=== PATIENT | female | born 2000 | race Caucasian/White ===

== ENCOUNTER 2018-06-23 01:09 | Emergency (ER) | payer MEDICAID ==
[2018-06-23] MEDS ORDERED: Ibuprofen 600 MG Tab PO ONE (01:20)
[2018-06-23] MEDS ORDERED: Clindamycin HCl 150 MG Cap PO ONE (01:20)
--- NOTE | 2018-06-23 01:20 | EDM.PDOC ---
ED HPI GENERAL MEDICAL PROBLEM - General Stated Complaint: TOOTHACHE Time Seen by Provider: 06/23/18 01:09 Source of Information: Reports: Patient History Limitations: Reports: No Limitations - History of Present Illness INITIAL COMMENTS - FREE TEXT/NARRATIVE: 18 y.o.w.f came to the ed this am due to toothache for one week. Pt took Tylenol without help. Pt does not smoke. She cleans her tooth twice a day. She is concerned about swelling of her right cheek. No N/V/D or any other acute medical issues. Pt denies . 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 Pain Score (Numeric/FACES): 9 - Related Data Allergies Allergy/AdvReac Type Severity Reaction Status Date / Time No Known Allergies Allergy Verified 06/23/18 01:17 Home Meds: Home Meds Clindamycin HCl [Cleocin HCl] 150 mg PO Q6HR #20 capsule 06/23/18 [Rx] Past Medical History - Past Health History Medical/Surgical History: Denies Medical/Surgical History Other HEENT History: AMBLYOPIA LT EYE Respiratory History: Reports: Asthma Gastrointestinal History: Reports: GERD Genitourinary History: Reports: Other (See Below) Other Genitourinary History: PAIN WITH 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 History: Reports: Other (See Below) Other NURSES' ASSOCIATION EXECUTIVE DIRECTOR History: OVARIAN CYST PER US Neurological History: Reports: Migraines Psychiatric History: Reports: Anxiety, Bipolar, Depression, Suicide Attempt Endocrine/Metabolic History: Reports: Obesity/BMI 30+ - Past Surgical History HEENT Surgical History: Reports: Adenoidectomy, Tonsillectomy Social & Family History - Family History Family Medical History: Noncontributory - Caffeine Use Caffeine Use: Reports: Soda ED ROS ENT - Review of Systems Review Of Systems: See Below Constitutional: Reports: No Symptoms HEENT: Reports: Dental Pain Respiratory: Reports: No Symptoms Cardiovascular: Reports: No Symptoms Endocrine: Reports: No Symptoms GI/Abdominal: Reports: No Symptoms : Reports: No Symptoms Musculoskeletal: Reports: No Symptoms Skin: Reports: No Symptoms Neurological: Reports: No Symptoms Psychiatric: Reports: No Symptoms Hematologic/Lymphatic: Reports: No Symptoms Immunologic: Reports: No Symptoms ED EXAM, ENT - Physical Exam Exam: See Below Exam Limited By: No Limitations General Appearance: Alert, WD/WN, Mild Distress Eye Exam: Bilateral Eye: Normal Inspection Ears: Normal External Exam Nose: Normal Inspection Mouth/Throat: Normal Inspection, Normal Lips, Normal Oropharynx, Dental Pain, Dental Tenderness, Gum Swelling Head: Atraumatic, Normocephalic Neck: Normal Inspection, Supple, Non-Tender, Full Range of Motion Respiratory/Chest: No Respiratory Distress, Lungs Clear, Normal Breath Sounds, No Accessory Muscle Use, Chest Non-Tender Cardiovascular: Normal Peripheral Pulses, Regular Rate, Rhythm, No Edema, No Gallop GI/Abdominal: Normal Bowel Sounds, Soft, Non-Tender, No Organomegaly, No Abnormal Bruit, No Mass, Pelvis Stable (Female) Exam: Deferred Rectal (Female) Exam: Deferred Back: Normal Inspection, Full Range of Motion Extremities: Normal Inspection, Normal Range of Motion, Non-Tender, No Pedal Edema Neurological: Alert, Oriented, CN II-XII Intact, Normal Cognition, Normal Gait Psychiatric: Normal Affect, Normal Mood Skin: Warm, Dry, Intact, Normal Color, No Rash Lymphatic: No Adenopathy Course - Vital Signs Text/Narrative:: 18 y.o.w.f came to the ed this am due to toothache for one week. Pt took Tylenol without help. Pt does not smoke. She cleans her tooth twice a day. She is concerned about swelling of her right cheek. No N/V/D or any other acute medical issues. Pt denies . BP 130/70 RR 17 Pulse ox 100% on RA Temp 36.1 Pulse 81 PE: WNWD W F with swelling of right cheek and poor dentition Impression: Gingivitis, poor dentition Tx: Clindamycin, Motrin Reexam: Improved Plan: D/C with instructions Last Recorded V/S: Last Vital Signs Temp 36.1 C 06/23/18 01:09 Pulse 82 06/23/18 01:09 Resp 17 06/23/18 01:09 BP 130/70 06/23/18 01:09 Pulse Ox 100 06/23/18 01:09 - Orders/Labs/Meds Meds: Medications Discontinued Medications Generic Name Dose Route Start Last Admin Trade Name Cain PRN Reason Stop Dose Admin Clindamycin HCl 150 mg 06/23/18 01:20 06/23/18 01:30 Cleocin PO 06/23/18 01:21 150 mg ONETIME ONE Administration Ibuprofen 600 mg 06/23/18 01:20 06/23/18 01:30 Motrin PO 06/23/18 01:21 600 mg ONETIME ONE Administration Departure - Departure Time of Disposition: :25 Disposition: Home, Self-Care 01 Condition: Good Clinical Impression: Toothache, Poor dentition - Discharge Information Prescriptions: Clindamycin HCl [Cleocin HCl] 150 mg PO Q6HR #20 capsule Instructions: Clindamycin capsules, Preventive Dental Care, Adult Referrals: Tram Beard NP [Primary Care Provider] - Forms: ED Department Discharge Additional Instructions: Please take Motrin for pain and the clindamycin for the Gingiva infection. Please f/u with a ellie A.S.A.P. Please come back if your symptoms get worse acutely
[2018-06-23 01:31] VITALS: BP 130/70
== END 2018-06-23 01:38 | disposition home or self-care (01) ==
LOC: FB.ED 01:09
DX: K05.10 Chronic gingivitis, plaque induced (principal); K08.89 Other specified disorders of teeth and supporting structures
CPT/HCPCS: 99282; A9270-GY

== ENCOUNTER 2018-08-03 21:22 | Emergency (ER) | payer MEDICAID ==
[2018-08-03] MEDS ORDERED: Sodium Bicarbonate 100 MEQ in Dextrose 5% in Water 100 ML IV ONE ×2 (22:39)
[2018-08-03 22:40] LABS: ACETAMINOPHEN < 2 ug/mL (<2)
[2018-08-03] MEDS ORDERED: LORazepam 2 MG/ML SDV IVPUSH ONE (22:42)
[2018-08-03] MEDS ORDERED: Activated Charcoal/Sorbitol Susp 50 GM/240 ML Bottle PO ONE (23:11)
[2018-08-03] MEDS ORDERED: Sodium Chloride 0.9% 1,000 ML IV ONE ×2 (23:17→23:38)
[2018-08-04 00:38] VITALS: BP 129/81
--- NOTE | 2018-08-04 07:13 | EDM.PDOC ---
ED HPI GENERAL MEDICAL PROBLEM - General Chief Complaint: Behavioral/Psych Stated Complaint: OVERDOSE Time Seen by Provider: 08/03/18 21:30 Source of Information: Reports: Patient History Limitations: Reports: No Limitations - History of Present Illness INITIAL COMMENTS - FREE TEXT/NARRATIVE: He is depressed and overdosed on Topamax, diet pills (dextroamphetamine, aspirin. He took at least 15 pills of each. He described this as "taking a handful of each." He has a wound who has changed his gender doctor male. He has had several episodes of suicidal gestures. He is bipolar, anxious, PTSD, has hx of several overdoses between [id number], has [id number] 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 (See Below) Other ACCOUNTANT MACHINE PROCESSING History: OVARIAN CYST PER US Neurological History: Reports: Migraines Psychiatric History: Reports: Anxiety, Bipolar, Depression, Suicide Attempt Endocrine/Metabolic History: Reports: Obesity/BMI 30+ - Past Surgical History HEENT Surgical History: Reports: Adenoidectomy, Tonsillectomy Social & Family History - Family History Family Medical History: Noncontributory - Tobacco Use Smoking Status *Q: Never Smoker - Caffeine Use Caffeine Use: Reports: None - Recreational Drug Use Recreational Drug Use: No ED ROS GENERAL - Review of Systems Review Of Systems: ROS reveals no pertinent complaints other than HPI. - Physical Exam Exam: See Below Text/Narrative:: Discussed stat with poison control for patient's aspirin overdose. ASA level was 87 and started on 3 Amps in 1 L D5W thousand cc at 200 mL an hour. Acetaminophen level is negative. Alcohol leg is negative. Urine drug screen negative. Exam Limited By: Other (She is cooperative and anxious obese man whois mildly flushed and slightly diaphoretic) General Appearance: Alert, Moderate Distress Eye Exam: Bilateral Eye: Abnormal Pupil (Pupils are fixed at 3 mm. Conjugate gaze noted mild vertical and torsional nystagmus. 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 with both other scars from plastic surgery) Cardiovascular: Normal Peripheral Pulses, Regular Rate, Rhythm, No Edema, No Gallop, No JVD, No Murmur, No Rub GI/Abdominal: Normal Bowel Sounds, Soft, Other (Moderate nonpigmented street and adipose tissue) (Female) Exam: Deferred Rectal (Female) Exam: Deferred Neuro Exam (Abbreviated): Alert, Oriented, CN II-XII Intact, Normal Cognition, Normal Gait DTR: 2+: Bicep (R), Bicep (L), Patella (R), Patella (L) Back Exam: Normal Inspection Extremities: Normal Inspection, Normal Range of Motion, Non-Tender, No Pedal Edema, Normal Capillary Refill, Pedal Edema Psychiatric: Anxious Skin Exam: Warm, Dry, Other (Facial flushing noted. Mild diaphoresis.) Course - Vital Signs Last Recorded V/S: Last Vital Signs Temp 36.8 C 08/03/18 23:30 Pulse 130 H 08/03/18 23:30 Resp 34 H 08/03/18 23:30 BP 129/81 08/03/18 23:30 Pulse Ox 100 08/03/18 23:30 - Orders/Labs/Meds Orders: Active Orders 24 hr Category Date Time Status EKG Documentation Completion [RC] ASDIRECTED Care 08/04/18 00:17 Active EKG 12 Lead [EK] Stat Ther 08/04/18 00:14 Ordered Labs: Laboratory Tests 08/03/18 08/03/18 08/03/18 Range/Units 21:40 21:40 21:40 WBC 14.9 H (4.5-12.0) X10-3/uL RBC 5.34 H (3.23-5.20) x10(6)uL Hgb 15.3 (11.5-15.5) g/dL Hct 45.7 (30.0-51.3) % MCV 85.5 (80-96) fL MCH 28.7 (27.7-33.6) pg MCHC 33.5 (32.2-35.4) g/dL RDW 14.3 (11.5-15.5) % Plt Count 470 H (125-369) X10(3)uL MPV 7.9 (7.4-10.4) fL Add Manual Diff Yes Neutrophils % (Manual) 87 H (46-82) % Lymphocytes % (Manual) 7 L (13-37) % Monocytes % (Manual) 6 (4-12) % Sodium 140 (135-145) mmol/L Potassium 4.3 (3.5-5.3) mmol/L Chloride 105 (100-110) mmol/L Carbon Dioxide 15 L (21-32) mmol/L BUN 22 H (7-18) mg/dL Creatinine 1.7 H (0.55-1.02) mg/dL Est Cr Clr Drug Dosing TNP Estimated GFR (MDRD) 38 L (>60) BUN/Creatinine Ratio 12.9 (9-20) Glucose 101 (80-116) mg/dL Calcium 8.5 L (8.6-10.2) mg/dL Total Bilirubin 0.5 (0.1-1.3) mg/dL AST 21 (5-25) IU/L ALT 23 (12-36) U/L Alkaline Phosphatase 120 H (56-112) IU/L Troponin I < 0.017 L (<0.017-0.056) ng/mL Total Protein 7.7 (6.0-8.0) g/dL Albumin 3.8 (3.5-5.2) g/dL Globulin 3.9 g/dL Albumin/Globulin Ratio 1.0 TSH, Ultra Sensitive 1.23 (0.36-3.74) IU/mL Urine Color (YELLOW) Urine Appearance (CLEAR) Urine pH (5.0-6.5) Ur Specific [place] (1.010-1.025) Urine Protein (NEGATIVE) mg/dL Urine Glucose (UA) (NORMAL) mg/dL Urine Ketones (NEGATIVE) mg/dL Urine Occult Blood (NEGATIVE) Urine Nitrite (NEGATIVE) Urine Bilirubin (NEGATIVE) Urine Urobilinogen (NEGATIVE) mg/dL Ur Leukocyte Esterase (NEGATIVE) Urine RBC (0-5) Urine WBC (0-5) Ur Squamous Epith Cells (NS,R,O) Urine Bacteria (NS) Salicylates 84.3 H* (<2.8) mg/dL Urine Opiates Screen (NEGATIVE) Ur Oxycodone Screen (NEGATIVE) Ur Propoxyphene Screen (NEGATIVE) Acetaminophen < 2 L (<2) ug/mL Ur Barbituates Screen (NEGATIVE) Ur Tricyclics Screen (NEGATIVE) Ur Phencyclidine Scrn (NEGATIVE) Ur Amphetamine Screen (NEGATIVE) Urine MDMA Screen (NEGATIVE) U Benzodiazepines Scrn (NEGATIVE) U Cocaine Metab Screen (NEGATIVE) U Marijuana (THC) Screen (NEGATIVE) Ethyl Alcohol < 0.03 (<0.03) % 08/03/18 08/03/18 Range/Units 21:49 21:51 WBC (4.5-12.0) X10-3/uL RBC (3.23-5.20) x10(6)uL Hgb (11.5-15.5) g/dL Hct (30.0-51.3) % MCV (80-96) fL MCH (27.7-33.6) pg MCHC (32.2-35.4) g/dL RDW (11.5-15.5) % Plt Count (125-369) X10(3)uL MPV (7.4-10.4) fL Add Manual Diff Neutrophils % (Manual) (46-82) % Lymphocytes % (Manual) (13-37) % Monocytes % (Manual) (4-12) % Sodium (135-145) mmol/L Potassium (3.5-5.3) mmol/L Chloride (100-110) mmol/L Carbon Dioxide (21-32) mmol/L BUN (7-18) mg/dL Creatinine (0.55-1.02) mg/dL Est Cr Clr Drug Dosing Estimated GFR (MDRD) (>60) BUN/Creatinine Ratio (9-20) Glucose (80-116) mg/dL Calcium (8.6-10.2) mg/dL Total Bilirubin (0.1-1.3) mg/dL AST (5-25) IU/L ALT (12-36) U/L Alkaline Phosphatase (56-112) IU/L Troponin I (<0.017-0.056) ng/mL Total Protein (6.0-8.0) g/dL Albumin (3.5-5.2) g/dL Globulin g/dL Albumin/Globulin Ratio TSH, Ultra Sensitive (0.36-3.74) IU/mL Urine Color Yellow (YELLOW) Urine Appearance Slightly cloudy (CLEAR) Urine pH 5.0 (5.0-6.5) Ur Specific [place] 1.030 H (1.010-1.025) Urine Protein Negative (NEGATIVE) mg/dL Urine Glucose (UA) Normal (NORMAL) mg/dL Urine Ketones 50 H (NEGATIVE) mg/dL Urine Occult Blood Negative (NEGATIVE) Urine Nitrite Negative (NEGATIVE) Urine Bilirubin Negative (NEGATIVE) Urine Urobilinogen Normal (NEGATIVE) mg/dL Ur Leukocyte Esterase Negative (NEGATIVE) Urine RBC 0-5 (0-5) Urine WBC 0-5 (0-5) Ur Squamous Epith Cells Few H (NS,R,O) Urine Bacteria Few H (NS) Salicylates (<2.8) mg/dL Urine Opiates Screen Negative (NEGATIVE) Ur Oxycodone Screen Negative (NEGATIVE) Ur Propoxyphene Screen Negative (NEGATIVE) Acetaminophen (<2) ug/mL Ur Barbituates Screen Negative (NEGATIVE) Ur Tricyclics Screen Positive H (NEGATIVE) Ur Phencyclidine Scrn Negative (NEGATIVE) Ur Amphetamine Screen Positive H (NEGATIVE) Urine MDMA Screen Negative (NEGATIVE) U Benzodiazepines Scrn Negative (NEGATIVE) U Cocaine Metab Screen Negative (NEGATIVE) U Marijuana (THC) Screen Negative (NEGATIVE) Ethyl Alcohol (<0.03) % Meds: Medications Discontinued Medications Generic Name Dose Route Start Last Admin Trade Name Freq PRN Reason Stop Dose Admin Charcoal/Sorbitol 25 gm 08/03/18 23:11 08/03/18 23:16 Insta-Michelle Sorbitol PO 08/03/18 23:12 25 gm ONETIME ONE Administration Sodium Bicarbonate 100 meq/ 200 mls @ 200 mls/hr 08/03/18 22:39 08/03/18 22: 55 Dextrose/Water IV 08/03/18 23:38 200 mls/hr ONETIME ONE Administration Sodium Chloride 1,000 mls @ 999 mls/hr 08/03/18 23:17 08/03/18 22:00 Normal Saline IV 08/04/18 00:17 999 mls/hr .BOLUS ONE Administration Sodium Chloride 1,000 mls @ 999 mls/hr 08/03/18 23:38 08/03/18 23:25 Normal Saline IV 08/04/18 00:38 999 mls/hr .BOLUS ONE Administration Lorazepam 2 mg 08/03/18 22:42 08/03/18 22:55 Ativan IVPUSH 08/03/18 22:43 2 mg ONETIME ONE Administration Departure - Departure Time of Disposition: 22:15 (At 2315 aspirin Tylenol alcohol TSH drug screen returned and discussion was completed with poison control and advised to give 3 Ampsof sodium bicarbonate with 1000 L D5 W 200 mL an hour, Ativan 2 mg IV prn to avoid seizures, and transfer arranged with Dr. Mendenhall, [facility] Rn Transfer) Disposition: DC/Tfer to [facility] Condition: Good Clinical Impression: Transgender, S/P sex reassignment surgery Intentional aspirin overdose Qualifiers: Encounter type: initial encounter Qualified Code(s): T39.012A - Poisoning by aspirin, intentional self-harm, initial encounter Suicidal overdose Qualifiers: Encounter type: initial encounter Qualified Code(s): T50.902A - Poisoning by unspecified drugs, medicaments and biological substances, intentional self-harm , initial encounter Obesity Qualifiers: Obesity type: due to excess calories Obesity classification: adult class 3 ( BMI >= 40) Serious obesity comorbidity presence: without serious comorbidity Body mass index: BMI 45.0-49.9 Qualified Code(s): E66.01 - Morbid (severe) obesity due to excess calories; Z68.42 - Body mass index (BMI) 45.0-49.9, adult - Discharge Information Referrals: PCP,Not In Area [Primary Care Provider] - Forms: ED Department Discharge - My Orders Last 24 Hours: My Active Orders 08/04/18 00:14 EKG 12 Lead [EK] Stat 08/04/18 00:17 EKG Documentation Completion [RC] ASDIRECTED - Assessment/Plan Last 24 Hours: My Active Orders 08/04/18 00:14 EKG 12 Lead [EK] Stat 08/04/18 00:17 EKG Documentation Completion [RC] ASDIRECTED
== END 2018-08-03 23:35 | disposition critical access hospital (66) ==
LOC: FB.ED 21:22
DX: T39.012A Poisoning by aspirin, intentional self-harm, initial encounter (principal); T42.6X2A Poisoning by other antiepileptic and sedative-hypnotic drugs, intentional self-harm, initial encounter; E66.01 Morbid (severe) obesity due to excess calories; Z68.42 Body mass index [BMI] 45.0-49.9, adult; Z87.890 Personal history of sex reassignment
CPT/HCPCS: 36415; 80053; 80305; 81001; 84443; 84484; 85025; 93005; 96361; 96365; 96375; 99285; G0480; J2060; J7030; J7060; J3490